=== PATIENT | female | born 1980 | race Caucasian/White ===

== ENCOUNTER 2020-08-18 17:00 | Outpatient (CLI) | payer MEDICAID, OTHER | END 2020-08-18 23:59 | disposition home or self-care (01) | LOC: LAB.R 17:00 | PROVIDERS: ATTEND Physician Assistant Medical | DX: R30.0 Dysuria (principal) | CPT/HCPCS: 87077; 87086; 87181 ==

== ENCOUNTER 2020-09-07 08:00 | Outpatient (CLI) | payer MEDICAID | END 2020-09-07 23:59 | disposition home or self-care (01) | LOC: LAB.S 08:00 | PROVIDERS: ATTEND Physician Assistant Medical | DX: N39.0 Urinary tract infection, site not specified (principal); R30.0 Dysuria | CPT/HCPCS: 87077; 87086; 87181 ==

== ENCOUNTER 2020-09-20 14:49 | Outpatient (CLI) | payer MEDICAID ==
[2020-09-20 20:27] LABS: BILIRUBIN,URINE NEGATIVE (NEGATIVE); GLUCOSE, URINE (UA) NEGATIVE (NEGATIVE); KETONES,URINE (UA) NEGATIVE (NEGATIVE); LEUKOCYTE ESTERASE, URINE NEGATIVE (NEGATIVE); NITRITE,URINE NEGATIVE (NEGATIVE); OCCULT BLOOD,URINE NEGATIVE (NEGATIVE); PROTEIN,URINE NEGATIVE (NEGATIVE); UROBILINOGEN,URINE 0.2 (NORMAL) E.U./dL (NORMAL)
[2020-09-20 20:30] LABS: CLARITY,URINE CLEAR (CLEAR)
[2020-09-20 20:39] LABS: BACTERIA,URINE None Seen /HPF (None Seen); RBC,URINE None Seen /HPF (0-5); SQUAMOUS EPITHELIAL CELL,UR RARE Squamous (<= Few); WBC,URINE 0-3 /HPF (0-5)
== END 2020-09-20 14:50 | disposition home or self-care (01) ==
LOC: LAB.S 14:49
PROVIDERS: ATTEND Emergency Medicine
DX: N39.0 Urinary tract infection, site not specified (principal)
CPT/HCPCS: 81001; 87086

== ENCOUNTER 2021-08-01 08:00 | Outpatient (CLI) | payer MEDICAID ==
--- NOTE | 2021-08-01 17:08 | XRAY Report ---
PROCEDURE: Shoulder 4 View RT INDICATIONS: SHOULDER PAIN TECHNIQUE: 4 views of the shoulder were acquired. COMPARISON: None. FINDINGS: Bones: No fractures or dislocations. No suspicious bony lesions. Visualized ribs appear intact. Soft tissues: No suspicious soft tissue calcifications. IMPRESSION: No fracture. No osseous lesion. If symptoms and/or clinical concern for pathology persists, further assessment with repeat plain film radiographs (7-10 days) or advanced imaging (CT, MR, bone scan) abraham uld be considered. Reviewed by: Fely Hyatt MD, PhD on 08/01/2021 5:06 PM PDT Approved by: Fely Hyatt MD, PhD on 08/01/2021 5:06 PM PDT Station ID: [id number]
== END 2021-08-01 23:59 | disposition home or self-care (01) ==
LOC: DI.WOS 08:00
PROVIDERS: ATTEND Orthopaedic Surgery
DX: M25.511 Pain in right shoulder (principal)

== ENCOUNTER 2021-10-12 09:02 | Outpatient (CLI) | payer MEDICAID ==
--- NOTE | 2021-10-12 20:29 | MRI Report ---
PROCEDURE: Shoulder RT W/O INDICATIONS: RIGHT ROTATOR CUFF SYNDROME TECHNIQUE: Noncontrast oblique coronal T2 fast spin echo with fat saturation, oblique sagittal T1 spin echo and T2 fast spin echo with fat saturation, axial T1 spin echo and T2 fast spin echo with fat saturation t hrough the shoulder. COMPARISON: Shoulder radiograph dated 07/25/2021 and 07/05/2021. FINDINGS: Image quality: Excellent. Rotator cuff: Distal supraspinatus and infraspinatus tendinosis is seen. Low-grade bursal surface par tial-thickness tear involving musculotendinous junction of supraspinatus is also seen. Distal subscap ularis tendinosis is also noted. No full-thickness rotator cuff tendon rupture.. No significant rota tor cuff muscle atrophy on sagittal images. Bones and bursae: No bone marrow contusions or fractures. Mild acromioclavicular joint osteoarthriti c changes are seen with joint space narrowing and subchondral sclerosis. Small amount of joint effusi on and subacromial subdeltoid bursal fluid is seen. Capsule and soft tissues: The glenohumeral ligaments are intact. Subtle signal abnormality and contou r irregularity involving superior anterior labrum is seen which may represent very subtle superior an terior labral tear at 12 to 1:00 position. The long head of the biceps tendon demonstrates normal loc ation and morphology. The rotator interval appears normal, without fibrosis. The coracohumeral liga ment is normal in thickness. IMPRESSION: 1. Distal supraspinatus, infraspinatus and subscapularis tendinosis. Low-grade bursal surface partial -thickness involving musculotendinous junction of supraspinatus. No full-thickness rotator cuff tendo n rupture. 2. Mild acromioclavicular joint osteoarthritis. No marrow edema. No fracture or dislocation. Small am ount of subacromial subdeltoid bursal fluid. 3. Fraying of superior anterior labrum which could indicate very subtle superior anterior labral tear at 12 to 1:00 position. Reviewed by: Gino Marshall MD on 10/12/2021 8:28 PM PDT Approved by: Gino Marshall MD on 10/12/2021 8:28 PM PDT Station ID: [id number]
== END 2021-10-12 09:03 | disposition home or self-care (01) ==
LOC: DI 09:02
PROVIDERS: ATTEND Internal Medicine
DX: M75.111 Incomplete rotator cuff tear or rupture of right shoulder, not specified as traumatic (principal); M19.011 Primary osteoarthritis, right shoulder